=== PATIENT | male | born 1950 | race Caucasian/White ===

== ENCOUNTER 2019-01-27 09:30 | Day surgery (SDC) | payer OTHER ==
[~2019-01-27] VITALS: Ht 165.1 cm; Wt 86.5 kg
[~2019-01-27 09:30] MED LIST: ALBU90OI
--- NOTE | 2019-01-27 11:10 | NUR ---
01/27/19 1110 Lizbet Puentes 2 IV MISS IN RH BY MEI VALVE 1 GOOD IV IN RAC BY MEI PT TOW
== END 2019-01-27 12:40 | disposition home or self-care (01) ==
LOC: ORSCSDS 09:30
PROVIDERS: Student in an Organized Health Care Education/Training Program
PROC: 0DB68ZX Excision of Stomach, Via Natural or Artificial Opening Endoscopic, Diagnostic (ICD-10-PCS; principal; 2019-01-27 12:00)
PROC: 0DB58ZX Excision of Esophagus, Via Natural or Artificial Opening Endoscopic, Diagnostic (ICD-10-PCS; principal; 2019-01-27 12:00)
PROC: 0DB98ZX Excision of Duodenum, Via Natural or Artificial Opening Endoscopic, Diagnostic (ICD-10-PCS; principal; 2019-01-27 12:00)
DX: K22.70 Barrett's esophagus without dysplasia (principal); R10.13 Epigastric pain; Q45.8 Other specified congenital malformations of digestive system; K21.0 Gastro-esophageal reflux disease with esophagitis; K44.9 Diaphragmatic hernia without obstruction or gangrene; K29.70 Gastritis, unspecified, without bleeding; J44.9 Chronic obstructive pulmonary disease, unspecified; Z79.899 Other long term (current) drug therapy
CPT/HCPCS: 88305; 88342; J2704; J7120